=== PATIENT | female | born 1945 | race Hispanic/Latino ===

== ENCOUNTER 2017-10-04 13:21 | Observation (INO) | payer BC ==
--- NOTE | 2017-10-04 13:56 | ED PDOC ---
HPI: General Adult History Per: Patient Onset/Duration Of Symptoms: Days (1) Current Symptoms Are (Timing): Still Present Severity: Moderate Pain Scale Rating Of: 4 Time Seen by Provider: 10/04/17 13:26 Chief Complaint (Nursing): Trauma Additional Complaint(s): Tripped and fell last night with injury to right hand and wrist. Also hit right side of head, no LOC. Also with injury to right knee. C/o pain to right wrist and hand. (Erasmo Hudson) Past Medical History - Medical History PMH: No Chronic Diseases - Family History Family History: States: Unknown Family Hx Vital Signs: Last Vital Signs Temp 98.7 F 10/05/17 05:00 Pulse 81 10/05/17 05:00 Resp 16 10/05/17 05:00 BP 142/79 10/05/17 05:00 Pulse Ox 98 10/05/17 05:00 - Home Medications Home Medications: Ambulatory Orders Medication Instructions Recorded No Known Home Med 10/04/17 - Allergies Allergies/Adverse Reactions: Allergies Allergy/AdvReac Type Severity Reaction Status Date / Time ciprofloxacin [From Cipro] Allergy RASH Verified 10/04/17 13:29 Latex, Natural Rubber Allergy RASH Verified 10/05/17 00:34 Review of Systems ROS Statement: Except As Marked, All Systems Reviewed And Found Negative Musculoskeletal: Positive for: Hand Pain, Other (Wrist pain) Physical Exam - Reviewed Nursing Documentation Reviewed: Yes Vital Signs Reviewed: Yes - Physical Exam Appears: Positive for: Non-toxic, No Acute Distress Head Exam: Positive for: ATRAUMATIC (Abrasion right periorbital area. No palp fx ) Skin: Positive for: Normal Color, Warm, DRY Eye Exam: Positive for: EOMI, PERRL ENT: Positive for: Normal ENT Inspection Neck: Positive for: Normal, Painless ROM Cardiovascular/Chest: Positive for: Regular Rate, Rhythm Respiratory: Positive for: CNT, Normal Breath Sounds Gastrointestinal/Abdominal: Positive for: Normal Exam, Soft Back: Positive for: Normal Inspection Extremity: Positive for: Other (Right wrist, swan neck deformity with tenderness. Pain on flexion and extension. [place]renss dorsum right hand. No tenderness over scaphoid. Right knee, abrasion to lateral aspect of knee, FROM) Neurologic/Psych: Positive for: Alert, Oriented. Negative for: Motor/Sensory Deficits - Laboratory Results Result Diagrams: 10/04/17 17:49 10/04/17 17:49 - ECG O2 Sat by Pulse Oximetry: 100 Medical Decision Making Medical Decision Making: Time: 1352 Plan: -- CT Upper Extremity w/o contrast -- CT Head w/o contrast -- Knee 3 views Right XR -- Hand Right 3 views XR -- Wrist Right 3 Views XR Scribe Attestation: Documented by Mando Matias, acting as a scribe for Dr. Erasmo Hudson MD. Pt declines pain meds Provider Scribe Attestation: All medical record entries made by the Scribe were at my direction and personally dictated by me. I have reviewed the chart and agree that the record accurately reflects my personal performance of the history, physical exam, medical decision making, and the department course for this patient. I have also personally directed, reviewed, and agree with the discharge instructions and disposition. (Erasmo Hudson) Disposition - Patient ED Disposition Is Patient to be Admitted: Transfer of Care - Disposition Disposition: Transfer of Care Disposition Time: 15:00 Patient Signed Over To: Camilla Celaya - Clinical Impression Clinical Impression: Wrist fracture - Disposition Condition: STABLE
--- NOTE | 2017-10-04 15:06 | RAD ---
PROCEDURE: Right Wrist Radiographs. HISTORY: trauma COMPARISON: None. FINDINGS: BONES: There is an acute transverse comminuted impacted nondisplaced fracture in the distal radius with mild dorsal angulation. There is an acute transverse nondisplaced fracture in the styloid process of ulna. There is also an old fracture deformity in the distal styloid process of ulna. There is also suspicion of acute nondisplaced longitudinal fracture in the cross renal scaphoid. There is diffuse bone demineralization. Bone alignment is normal. JOINTS: The proximal and distal carpal rows are maintained. No dislocation. SOFT TISSUES: There is mild dorsal soft tissue swelling. OTHER FINDINGS: None. IMPRESSION: Acute transverse comminuted impacted nondisplaced fracture in the distal radius with mild dorsal angulation. Acute transverse nondisplaced fracture in the styloid process of ulna. Suspect acute nondisplaced longitudinal fracture in the proximal scaphoid. Dedicated scaphoid views recommended for further evaluation.
--- NOTE | 2017-10-04 15:09 | RAD ---
PROCEDURE: Right Hand Radiographs. HISTORY: trauma COMPARISON: None. FINDINGS: BONES: There is question of an acute nondisplaced long. No fracture in the proximal scaphoid. Bone alignment is normal. There is diffuse bone demineralization. JOINTS: The proximal and distal scaphoid rows are maintained. No osteoarthritic changes. SOFT TISSUES: Normal. OTHER FINDINGS: None. IMPRESSION: Question of acute nondisplaced longitudinal fracture in the proximal scaphoid. Dedicated scaphoid views recommended for definitive evaluation.
--- NOTE | 2017-10-04 15:12 | RAD ---
PROCEDURE: Right Knee Radiographs. HISTORY: trauma COMPARISON: None. FINDINGS: BONES: Bone alignment is normal. There is periarticular bone demineralization. There is no acute displaced fracture or bone destruction. JOINTS: Normal. No osteoarthritis. JOINT EFFUSION: There is a small suprapatellar joint effusion. OTHER FINDINGS: None. IMPRESSION: No acute fracture or dislocation.
--- NOTE | 2017-10-04 15:18 | CT ---
PROCEDURE: CT HEAD WITHOUT CONTRAST. HISTORY: r/o bleed COMPARISON: None available. TECHNIQUE: Axial computed tomography images were obtained through the head/brain without intravenous contrast. Radiation dose: Total exam DLP = 796.90 mGy-cm. This CT exam was performed using one or more of the following dose reduction techniques: Automated exposure control, adjustment of the mA and/or kV according to patient size, and/or use of iterative reconstruction technique. FINDINGS: HEMORRHAGE: No intracranial hemorrhage. BRAIN: There are mild chronic microangiopathic changes. There is no mass, mass effect or abnormal extra-axial fluid collection. There is no territorial infarction. VENTRICLES: There is mild age-related global parenchymal volume loss and proportionate enlargement of the ventricles and cortical sulci. CALVARIUM: The skull base and calvarium are normal. PARANASAL SINUSES: Predominantly clear. MASTOID AIR CELLS: Predominantly clear. OTHER FINDINGS: None. IMPRESSION: No acute intracranial abnormality.
--- NOTE | 2017-10-04 15:24 | CT ---
PROCEDURE: CT of the right wrist. HISTORY: trauma, attention wrist and hand COMPARISON: None available. TECHNIQUE: Contiguous axial images of the right wrist were obtained. Coronal and sagittal reformats were generated. This CT exam was performed using one or more of the following dose reduction techniques: Automated exposure control, adjustment of the mA and/or kV according to patient size, and/or use of iterative reconstruction technique. FINDINGS: BONES: There is an acute transverse comminuted nondisplaced impacted intra-articular fracture in the distal radius with mild dorsal angulation. There is an acute transverse nondisplaced fracture in the styloid process of ulna. There is an old fracture deformity in the distal styloid process of ulna. Bone alignment is normal. There is diffuse bone demineralization. The proximal and distal carpal rows are maintained. There is no evidence of fracture in the carpal bones. The radiocarpal joint is normal. SOFT TISSUES: The periarticular muscles are grossly normal in appearance. There is mild dorsal soft tissue swelling. IMPRESSION: 1. Acute transverse impacted comminuted intra-articular fracture in the distal radius with mild dorsal angulation. No dislocation. 2. Acute transverse nondisplaced fracture in the styloid process of ulna. 3. No evidence of fracture in the carpal bones.
--- NOTE | 2017-10-04 16:06 | ED PDOC ---
- Laboratory Results Result Diagrams: 10/04/17 17:49 10/04/17 17:49 - ECG O2 Sat by Pulse Oximetry: 100 Medical Decision Making Medical Decision Making: Accession No. : [id number] Patient Name / ID : RAMO DAI / [id number] Exam Date : 10/04/2017 14:48:06 ( Approved ) Study Comment : Sex / Age : F / 72Y Creator : Emma Vargas MD Dictator : Emma Vargas MD Tar Heat Exchanger Cleaner : Forensic Ballistics Expert : Emma Vargas MD Approver2 : Report Date : 10/04/2017 15:23:22 My Comment : PROCEDURE: CT of the right wrist. HISTORY: trauma, attention wrist and hand COMPARISON: None available. TECHNIQUE: Contiguous axial images of the right wrist were obtained. Coronal and sagittal reformats were generated. This CT exam was performed using one or more of the following dose reduction techniques: Automated exposure control, adjustment of the mA and/or kV according to patient size, and/or use of iterative reconstruction technique. FINDINGS: BONES: There is an acute transverse comminuted nondisplaced impacted intra-articular fracture in the distal radius with mild dorsal angulation. There is an acute transverse nondisplaced fracture in the styloid process of ulna. There is an old fracture deformity in the distal styloid process of ulna. Bone alignment is normal. There is diffuse bone demineralization. The proximal and distal carpal rows are maintained. There is no evidence of fracture in the carpal bones. The radiocarpal joint is normal. SOFT TISSUES: The periarticular muscles are grossly normal in appearance. There is mild dorsal soft tissue swelling. IMPRESSION: 1. Acute transverse impacted comminuted intra-articular fracture in the distal radius with mild dorsal angulation. No dislocation. 2. Acute transverse nondisplaced fracture in the styloid process of ulna. 3. No evidence of fracture in the carpal bones. Accession No. : [id number] Patient Name / ID : RAMO DAI / [id number] Exam Date : 10/04/2017 14:43:20 ( Approved ) Study Comment : Sex / Age : F / 72Y Creator : Emma Vargas MD Dictator : Emma Vargas MD Tar Heat Exchanger Cleaner : Forensic Ballistics Expert : Emma Vargas MD Approver2 : Report Date : 10/04/2017 15:16:13 My Comment : PROCEDURE: CT HEAD WITHOUT CONTRAST. HISTORY: r/o bleed COMPARISON: None available. TECHNIQUE: Axial computed tomography images were obtained through the head/brain without intravenous contrast. Radiation dose: Total exam DLP = 796.90 mGy-cm. This CT exam was performed using one or more of the following dose reduction techniques: Automated exposure control, adjustment of the mA and/or kV according to patient size, and/or use of iterative reconstruction technique. FINDINGS: HEMORRHAGE: No intracranial hemorrhage. BRAIN: There are mild chronic microangiopathic changes. There is no mass, mass effect or abnormal extra-axial fluid collection. There is no territorial infarction. VENTRICLES: There is mild age-related global parenchymal volume loss and proportionate enlargement of the ventricles and cortical sulci. CALVARIUM: The skull base and calvarium are normal. PARANASAL SINUSES: Predominantly clear. MASTOID AIR CELLS: Predominantly clear. OTHER FINDINGS: None. IMPRESSION: No acute intracranial abnormality. 15:50 CT reports discussed with Dr. Rios, recommends CT facial bones. 16:35 Admit to hospital, splint, ice X 20 minutes q1h, case discussed with Dr. Sherman (Hospitalist). Disposition - Clinical Impression Clinical Impression: Wrist fracture - POA Present On Arrival: Falls Or Trauma - Disposition Disposition: Admitted as In-Patient Disposition Time: 16:41 Condition: STABLE Addendum Addendum: 10/04/17 15:00 Pt signed out by Dr. Hudson pending CT.
--- NOTE | 2017-10-04 16:46 | CT ---
PROCEDURE: CT ORBITS WITHOUT CONTRAST. HISTORY: R orbital injury COMPARISON: None available. TECHNIQUE: Axial CT images of the orbits were obtained. Coronal and sagittal reformats were generated. Radiation dose: Total exam DLP = 1148.32 MGy-cm. This CT exam was performed using one or more of the following dose reduction techniques: Automated exposure control, adjustment of the mA and/or kV according to patient size, and/or use of iterative reconstruction technique. FINDINGS: RIGHT ORBIT: RIGHT BONY ORBIT: No acute fracture. RIGHT INTRAORBITAL STRUCTURES: Globe: Normal. Extraocular muscles: Normal. Post septal space: Normal. Optic Nerve: Normal. Lacrimal Apparatus: Normal. RIGHT PRESEPTAL SOFT TISSUES: Normal. LEFT ORBIT: LEFT BONY ORBIT: No acute fracture. LEFT INTRAORBITAL STRUCTURES: Globe: Normal. Extraocular muscles: Normal. Post septal space: Normal Optic Nerve: Normal. . Lacrimal Apparatus: Normal. LEFT PRESEPTAL SOFT TISSUES: Normal. OTHER: The paranasal sinuses are clear. IMPRESSION: No acute orbital fracture. No acute maxillofacial fracture.
--- NOTE | 2017-10-04 16:50 | RAD ---
HISTORY: Medical clearance COMPARISON: No prior. FINDINGS: LUNGS: The lungs are well inflated and clear. PLEURA: No significant pleural effusion identified, no pneumothorax apparent. CARDIOVASCULAR: Normal. OSSEOUS STRUCTURES: No significant abnormalities. VISUALIZED UPPER ABDOMEN: Normal. OTHER FINDINGS: None. IMPRESSION: No active pulmonary disease.
[2017-10-04 17:55] LABS: BASO # 0.1 K/uL (0.0-0.2); BASO % 0.7 % (0.0-2.0); EOS # 0.1 K/uL (0.0-0.7); EOS % 0.7 % (0.0-4.0); LYMPH # 1.1 K/uL (1.0-4.3); LYMPH % 12.8 % (20.0-40.0); MEAN CELL VOLUME 94.1 fl (81.0-99.0); MEAN CORPUSCULAR HEMOGLOBIN 32.2 pg (27.0-31.0); MEAN CORPUSCULAR HGB CONC 34.3 g/dL (33.0-37.0); MEAN PLATELET VOLUME 8.1 fl (7.2-11.7); MONO # 0.6 K/uL (0.0-0.8); MONO % 7.6 % (0.0-10.0); NEUT # 6.5 K/uL (1.8-7.0); NEUT % 78.2 % (50.0-75.0); RBC 4.64 Mil/uL (3.80-5.20); RED CELL DISTRIBUTION WIDTH 12.5 % (11.5-14.5); WHITE BLOOD COUNT 8.3 K/uL (4.8-10.8)
[2017-10-04 18:02] LABS: ALB/GLOB RATIO 1.3 (1.0-2.1); ALBUMIN 4.2 g/dL (3.5-5.0); ALT/SGPT 36 U/L (9-52); AST/SGOT 37 U/L (14-36); BLOOD UREA NITROGEN 28 mg/dl (7-17); CALCIUM 9.3 mg/dL (8.4-10.2); GFR AFRICAN-AMERICAN > 60; GFR NON-AFRICAN AMERICAN > 60
[2017-10-04 18:05] LABS: INR 0.9 (0.9-1.2); PROTHROMBIN TIME 10.4 Seconds (9.8-13.1)
[2017-10-04 18:06] LABS: PARTIAL THROMBOPLASTIN TIME 26.5 Seconds (25.6-37.1)
--- NOTE | 2017-10-04 18:15 | CP.PCM.HP ---
History of Present Illness - History of Present Illness History of Present Illness: CC: Right wrist injury This is a 72 year old male with past medical history of mild intermittent asthma (has not had to use her Ventolin inhaler for years) presenting to the ED status post fall the evening of 10/03/2017. The patient states that she was working outside when she had a mechanical fall and fell forward with outstretched right hand. The patient states that her wrist and the right side of her face hit the pavement. In the ED, the patient had Right wrist X ray and follow up CT of the right upper extremity revealing acute transverse impacted comminuted intra-articular fracture in the distal radius with mild dorsal angulation without dislocation. There is also an acute transverse nondisplaced fracture in the styloid process of the ulna. CT imaging of the orbit shows no orbital fracture. The patient denies chest pain, shortness of breath, fevers, chills, nausea, vomiting, diarrhea, headache. All of the patient's and/or family 's questions were answered at the bedside. Present on Admission - Present on Admission Any Indicators Present on Admission: No History of DVT/PE: No History of Uncontrolled Diabetes: No Review of Systems - Review of Systems Review of Systems: A 12 point review of systems was conducted and found to be negative other than in HPI. Past Patient History - Infectious Disease Hx of Infectious Diseases: None - Past Medical History & Family History Past Medical History?: No Past Family History: Reviewed and not pertinent - Past Social History Smoking Status: Never Smoked Alcohol: None Drugs: Denies Home Situation {Lives}: With Family - PULMONARY Hx Asthma: Yes (Mild intermittent) - PSYCHIATRIC Hx Substance Use: No - SURGICAL HISTORY Hx Section: Yes - ANESTHESIA Hx Anesthesia: Yes Hx Anesthesia Reactions: No Meds Allergies/Adverse Reactions: Allergies Allergy/AdvReac Type Severity Reaction Status Date / Time ciprofloxacin [From Cipro] Allergy RASH Verified 10/04/17 13:29 Physical Exam - Additional Findings Additional findings: Physical exam: Constitutional- cooperative, awake, alert Head- normocephalic, right lateral orbit with localized edema and small contusion, PERRL Eye- PERRL, EOMI ENT- normal exam, MMM. Neck- normal inspection, supple, no JVD Respiratory- CTAB, no wheezes rales rhonchi Cardiovascular- RRR, +S1, +S2 no MRG GI/Abdominal- normal bowel sounds, soft, no mass, no hsm Skin- warm, dry Extremities Exam- + Right wrist with localized edema and tenderness to palpation. No neurological deficits. normal capillary refill. Neurological Exam- alert, awake, oriented Psych- normal mood, normal affect Results - Vital Signs Recent Vital Signs: Last Vital Signs Temp 98 F 10/04/17 13:30 Pulse 87 10/04/17 13:30 Resp 18 10/04/17 13:30 BP 181/99 H 10/04/17 13:30 Pulse Ox 100 10/04/17 16:41 - Labs Result Diagrams: 10/04/17 17:49 10/04/17 17:49 Assessment & Plan - Assessment and Plan (Free Text) Plan: ASSESSMENT/PLAN This is a 72 year old male with past medical history of mild intermittent asthma (has not had to use her Ventolin inhaler for years) presenting to the ED status post fall the evening of 10/03/2017, with acute right wrist fracture. 1) Acute right distal radial fracture and acute right ulnar fracture - Place on med/surg observation - Consultation with Dr. Rios- plan for OR tomorrow morning - NPO at midnight with maintenance fluids - Pain control with Tylenol and morphine sliding scale - Patient 2) Hypertension on admission - May be elevated secondary to pain - Cardiology consult with Dr. Ott for preop cardiac risk assessment 3) DVT prophylaxis - SCDs
[2017-10-04] MEDS ORDERED: Albuterol HFA 90 mcg/actuation (8 g) INH PRN (18:18)
[2017-10-04 21:44] LABS: SQUAMOUS EPITHIAL 2 /hpf (0-5); URINE BILIRUBIN NEGATIVE (NEGATIVE); URINE BLOOD NEGATIVE (NEGATIVE); URINE CLARITY SLIGHTY-CLOUDY (Clear); URINE COLOR YELLOW (YELLOW); URINE GLUCOSE (UA) NEG (Normal); URINE HYALINE CAST 0-2 /hpf (0-2); URINE LEUKOCYTE ESTERASE NEG Leu/uL (Negative); URINE PROTEIN NEGATIVE (NEGATIVE); URINE UROBILINOGEN 0.2-1.0 mg/dL (0.2-1.0)
[2017-10-05] MEDS: Bacitracin OINT 15GM TOP SCH ×3 (00:19→18:55)
--- NOTE | 2017-10-05 07:14 | CP.PCM.PCO ---
Physician Communication Note - Physician Communication Note Physician Communication Note: Clearance for Surgery.
--- NOTE | 2017-10-05 07:58 | CP.PCM.CON ---
History of Present Illness - History of Present Illness History of Present Illness: THE PATIENT IS A 72 YEAR OLD FEMALE WHO TRIPPED YESTERDAY AND HAD A MECHANICAL FALL AND FELL ON OUTSTRETCHED ARMS AND HANDS AND SUSTAINED A RIGHT WRIST FRACTURE. SHE IS SCHEDULED FOR SURGERY BY DR BALDWIN TODAY AND I WAS ASKED TO SEE HER PRE-OPERATIVELY. SHE HAS A HISTORY OF MILD ASTHMA AND TAKES INHALERS RARELY USUALLY DURING ALLERGY SEASON. SHE DENIES ANY OTHER KNOWN MEDICAL PROBLEMS SUCH CARDIAC PROBLEMS, HYPERTENSION, HYPERLIPIDEMIA OR DM. SHE DENIES ANY CHEST PAIN, PALPITATIONS OR SOB. HER BLOOD PRESSURE WAS HIGH IN THE ER AT 184/105 MOST PROBABLY FROM THE RIGHT WRIST PAIN AND IT IS NOW BETTER AT 124/78 AFTER MS AND ONE DOSE OF CLONIDINE. Past Patient History - Infectious Disease Hx of Infectious Diseases: None - Past Medical History & Family History Past Medical History?: No - Past Social History Smoking Status: Never Smoked - PULMONARY Hx Respiratory Disorders: Yes Hx Asthma: Yes (Mild intermittent) - NEUROLOGICAL Hx Neurological Disorder: No - HEENT Hx HEENT Problems: No - RENAL Hx Chronic Kidney Disease: No - ENDOCRINE/METABOLIC Hx Endocrine Disorders: No - HEMATOLOGICAL/ONCOLOGICAL Hx Blood Disorders: No Hx AIDS: No Hx Human Immunodeficiency Virus (HIV): No - INTEGUMENTARY Hx Dermatological Problems: No - MUSCULOSKELETAL/RHEUMATOLOGICAL Hx Musculoskeletal Disorders: Yes Hx Falls: Yes - GASTROINTESTINAL Hx Gastrointestinal Disorders: No - GENITOURINARY/GYNECOLOGICAL Hx Genitourinary Disorders: No - PSYCHIATRIC Hx Psychophysiologic Disorder: No Hx Substance Use: No - SURGICAL HISTORY Hx Surgeries: Yes Hx Section: Yes - ANESTHESIA Hx Anesthesia: Yes Hx Anesthesia Reactions: No Meds Allergies/Adverse Reactions: Allergies Allergy/AdvReac Type Severity Reaction Status Date / Time ciprofloxacin [From Cipro] Allergy RASH Verified 10/04/17 13:29 contact metal agent Allergy PAIN Verified 10/05/17 07:05 Latex, Natural Rubber Allergy RASH Verified 10/05/17 00:34 - Medications Medications: Current Medications Acetaminophen (Tylenol 325mg Tab) 650 mg PO Q6 PRN PRN Reason: Pain, Mild (1-3) Albuterol (Ventolin Hfa 90 Mcg/Actuation (8 G)) 1 puff INH RQ4 PRN PRN Reason: Shortness of Breath Bacitracin (Bacitracin Oint) 1 applic TOP BID TANA Last Admin: 10/05/17 00:19 Dose: 1 applic Dextrose/Sodium Chloride (Dextrose 5%-0.45% Ns 500 Ml) 500 mls @ 60 mls/hr IV .[id number] TANA Stop: 10/05/17 15:00 Last Admin: 10/05/17 00:31 Dose: 60 mls/hr Morphine Sulfate (Morphine) 1 mg IVP Q4 PRN PRN Reason: Pain, moderate (4-7) Morphine Sulfate (Morphine) 2 mg IVP Q4 PRN PRN Reason: Pain, severe (8-10) Last Admin: 10/05/17 04:05 Dose: 2 mg Zolpidem Tartrate (Ambien) 5 mg PO HS PRN PRN Reason: Insomnia Last Admin: 10/04/17 23:23 Dose: 5 mg Physical Exam - Respiratory Exam Respiratory Exam: Clear to Auscultation Bilateral - Cardiovascular Exam Cardiovascular Exam: REGULAR RHYTHM, +S1, +S2 - Extremities Exam Additional comments: NO EDEMA OF LOWER EXTREMITIES JORGE'S SIGN NEGATIVE BILAT - Additional Findings Additional findings: EKG NSR CXR NAD OTHER LABS NOTED Results - Vital Signs Recent Vital Signs: Last Vital Signs Temp 98.7 F 10/05/17 05:00 Pulse 77 10/05/17 07:03 Resp 20 10/05/17 07:03 BP 124/78 10/05/17 07:03 Pulse Ox 98 10/05/17 07:03 - Labs Result Diagrams: 10/04/17 17:49 10/04/17 17:49 Labs: Laboratory Results - last 24 hr 10/04/17 10/04/17 10/04/17 17:49 17:49 17:49 WBC 8.3 RBC 4.64 Hgb 15.0 Hct 43.6 MCV 94.1 MCH 32.2 H MCHC 34.3 RDW 12.5 Plt Count 229 MPV 8.1 Neut % (Auto) 78.2 H Lymph % (Auto) 12.8 L Sebastian % (Auto) 7.6 Eos % (Auto) 0.7 Baso % (Auto) 0.7 Neut # (Auto) 6.5 Lymph # (Auto) 1.1 Sebastian # (Auto) 0.6 Eos # (Auto) 0.1 Baso # (Auto) 0.1 PT 10.4 INR 0.9 APTT 26.5 Sodium 141 Potassium 3.9 Chloride 103 Carbon Dioxide 22 Anion Gap 20 BUN 28 H Creatinine 0.6 L Est GFR ( Amer) > 60 Est GFR (Non-Af Amer) > 60 Random Glucose 94 Calcium 9.3 Total Bilirubin 0.6 AST 37 H ALT 36 Alkaline Phosphatase 104 Total Protein 7.3 Albumin 4.2 Globulin 3.1 Albumin/Globulin Ratio 1.3 Urine Color Urine Clarity Urine pH Ur Specific Cressey Urine Protein Urine Glucose (UA) Urine Ketones Urine Blood Urine Nitrate Urine Bilirubin Urine Urobilinogen Ur Leukocyte Esterase Urine RBC (Auto) Urine Microscopic WBC Ur Squamous Epith Cells Hyaline Casts 10/04/17 21:30 WBC RBC Hgb Hct MCV MCH MCHC RDW Plt Count MPV Neut % (Auto) Lymph % (Auto) Sebastian % (Auto) Eos % (Auto) Baso % (Auto) Neut # (Auto) Lymph # (Auto) Sebastian # (Auto) Eos # (Auto) Baso # (Auto) PT INR APTT Sodium Potassium Chloride Carbon Dioxide Anion Gap BUN Creatinine Est GFR ( Amer) Est GFR (Non-Af Amer) Random Glucose Calcium Total Bilirubin AST ALT Alkaline Phosphatase Total Protein Albumin Globulin Albumin/Globulin Ratio Urine Color Yellow Urine Clarity Slighty-cloudy Urine pH 5.0 Ur Specific Cressey 1.019 Urine Protein Negative Urine Glucose (UA) Neg Urine Ketones Trace Urine Blood Negative Urine Nitrate Negative Urine Bilirubin Negative Urine Urobilinogen 0.2-1.0 Ur Leukocyte Esterase Neg Urine RBC (Auto) 3 Urine Microscopic WBC 1 Ur Squamous Epith Cells 2 Hyaline Casts 0-2 Assessment & Plan - Assessment and Plan (Free Text) Assessment: FALL WITH RIGHT WRIST FRACTURE MILD ASTHMA-STABLE HYPERTENSION MOST PROBABLY FROM THE THE RIGHT WRIST FRACTURE PAIN Plan: THE PATIENT IS CLEARED FOR HER ORTHOPEDIC SURGERY OBSERVE BLOOD PRESSURE POST-OP
[2017-10-05] MEDS ORDERED: Morphine 4 MG/ML VIAL ONE (08:05)
[2017-10-05] MEDS: Morphine 4 MG/ML VIAL IVP PRN ×4 (08:10→23:05)
--- NOTE | 2017-10-05 08:14 | CP.PCM.PN ---
Subjective - Date & Time of Evaluation Date of Evaluation: 10/05/17 Time of Evaluation: 08:13 - Subjective Subjective: pt stable this am no complaints pain controlled hd stable Objective - Vital Signs/Intake and Output Vital Signs (last 24 hours): Temp Pulse Resp BP Pulse Ox 98.7 F 77 20 124/78 98 10/05/17 05:00 10/05/17 07:03 10/05/17 07:03 10/05/17 07:03 10/05/17 07:03 Vitals Reviewed GEN: WDWN, alert, cooperative HEENT: NCAT, PERRL, EOMI HEART: RRR, +S1S2, NO MRG LUNG: CTAB, NO WRR ABD: soft, NT, ND, No HSM, No masses EXT: normal pedal pulses, normal capillary refill NEURO: awake, alert, no focal deficits SKIN: warm, dry PSYCH: normal mood, normal affect - Medications Medications: Current Medications Acetaminophen (Tylenol 325mg Tab) 650 mg PO Q6 PRN PRN Reason: Pain, Mild (1-3) Albuterol (Ventolin Hfa 90 Mcg/Actuation (8 G)) 1 puff INH RQ4 PRN PRN Reason: Shortness of Breath Bacitracin (Bacitracin Oint) 1 applic TOP BID [facility] Last Admin: 10/05/17 00:19 Dose: 1 applic Dextrose/Sodium Chloride (Dextrose 5%-0.45% Ns 500 Ml) 500 mls @ 60 mls/hr IV .Q8H20M [facility] Stop: 10/05/17 15:00 Last Admin: 10/05/17 00:31 Dose: 60 mls/hr Morphine Sulfate (Morphine) 1 mg IVP Q4 PRN PRN Reason: Pain, moderate (4-7) Morphine Sulfate (Morphine) 2 mg IVP Q4 PRN PRN Reason: Pain, severe (8-10) Last Admin: 10/05/17 08:10 Dose: 2 mg Zolpidem Tartrate (Ambien) 5 mg PO HS PRN PRN Reason: Insomnia Last Admin: 10/04/17 23:23 Dose: 5 mg - Labs Labs: 10/04/17 17:49 10/04/17 17:49 PT 10.4 Seconds (9.8-13.1) 10/04/17 17:49 INR 0.9 (0.9-1.2) 10/04/17 17:49 APTT 26.5 Seconds (25.6-37.1) 10/04/17 17:49 Assessment and Plan - Assessment and Plan (Free Text) Plan: This is a 72 year old female with past medical history of mild intermittent asthma (has not had to use her Ventolin inhaler for years) presenting to the ED status post fall the evening of 10/03/2017, with acute right wrist fracture. Medically stable for OR this morning, low risk for moderate risk procedure. 1) Acute right distal radial fracture and acute right ulnar fracture - Place on med/surg observation - Consultation with Dr. Rios- plan for OR tomorrow morning - NPO at midnight with maintenance fluids - Pain control with Tylenol and morphine sliding scale - Patient 2) Hypertension on admission - May be elevated secondary to pain - Cardiology consult with Dr. Ott for preop cardiac risk assessment 3) DVT prophylaxis - SCDs
[2017-10-05] MEDS ORDERED: Etomidate 20 mg/10ml Inj IV ONE (08:32)
[2017-10-05] MEDS ORDERED: Succinylcholine 200 mg/10 ml Inj IV ONE (08:32)
[2017-10-05] MEDS ORDERED: Propofol 10 mg/ml Inj (20 ML) ONE (08:32)
[2017-10-05] MEDS ORDERED: Rocuronium 10 mg/ml (5 ml) ONE (08:32)
[2017-10-05] MEDS ORDERED: Lactated Ringer's 1,000 ML IV ONE (08:50)
--- NOTE | 2017-10-05 09:03 | CP.PCM.CON ---
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 PT stumbled on irregularity in receently paved driveway. Pt presents to ER at [facility] at my direction. PT evaluated by me and by ER team in ER. No LOC Past Patient History - Infectious Disease Hx of Infectious Diseases: None - Past Medical History & Family History Past Medical History?: No - Past Social History Smoking Status: Never Smoked - PULMONARY Hx Respiratory Disorders: Yes Hx Asthma: Yes (Mild intermittent) - NEUROLOGICAL Hx Neurological Disorder: No - HEENT Hx HEENT Problems: No - RENAL Hx Chronic Kidney Disease: No - ENDOCRINE/METABOLIC Hx Endocrine Disorders: No - HEMATOLOGICAL/ONCOLOGICAL Hx Blood Disorders: No Hx AIDS: No Hx Human Immunodeficiency Virus (HIV): No - INTEGUMENTARY Hx Dermatological Problems: No - MUSCULOSKELETAL/RHEUMATOLOGICAL Hx Musculoskeletal Disorders: Yes Hx Falls: Yes - GASTROINTESTINAL Hx Gastrointestinal Disorders: No - GENITOURINARY/GYNECOLOGICAL Hx Genitourinary Disorders: No - PSYCHIATRIC Hx Psychophysiologic Disorder: No Hx Substance Use: No - SURGICAL HISTORY Hx Surgeries: Yes Hx Section: Yes Other/Comment: past med hx- not contributory - ANESTHESIA Hx Anesthesia: Yes Hx Anesthesia Reactions: No Meds Allergies/Adverse Reactions: Allergies Allergy/AdvReac Type Severity Reaction Status Date / Time ciprofloxacin [From Cipro] Allergy RASH Verified 10/04/17 13:29 contact metal agent Allergy PAIN Verified 10/05/17 07:05 Latex, Natural Rubber Allergy RASH Verified 10/05/17 00:34 - Medications Medications: Current Medications Acetaminophen (Tylenol 325mg Tab) 650 mg PO Q6 PRN PRN Reason: Pain, Mild (1-3) Albuterol (Ventolin Hfa 90 Mcg/Actuation (8 G)) 1 puff INH RQ4 PRN PRN Reason: Shortness of Breath Bacitracin (Bacitracin Oint) 1 applic TOP BID [facility] Last Admin: 10/05/17 00:19 Dose: 1 applic Dextrose/Sodium Chloride (Dextrose 5%-0.45% Ns 500 Ml) 500 mls @ 60 mls/hr IV .Q8H20M [facility] Stop: 10/05/17 15:00 Last Admin: 10/05/17 00:31 Dose: 60 mls/hr Morphine Sulfate (Morphine) 1 mg IVP Q4 PRN PRN Reason: Pain, moderate (4-7) Morphine Sulfate (Morphine) 2 mg IVP Q4 PRN PRN Reason: Pain, severe (8-10) Last Admin: 10/05/17 08:10 Dose: 2 mg Zolpidem Tartrate (Ambien) 5 mg PO HS PRN PRN Reason: Insomnia Last Admin: 10/04/17 23:23 Dose: 5 mg Physical Exam - Additional Findings Additional findings: Systemic HEENT- + periorbital R ecchymosis No LOC remainder of sytemic exam grossly wnl- please refer to Dr Ott/DR Garcia?/ DR Whyte notes Musculoskekltal stance/gait- defrred R upper extremityy with "silver fork" deformity no neuro deficits abrasion on dorsal/ulnar aspect wrist (Right) Results - Vital Signs Recent Vital Signs: Last Vital Signs Temp 97.5 F L 10/05/17 08:13 Pulse 72 10/05/17 08:13 Resp 18 10/05/17 08:13 BP 108/65 10/05/17 08:13 Pulse Ox 95 10/05/17 08:13 - Labs Result Diagrams: 10/04/17 17:49 10/04/17 17:49 Labs: Laboratory Results - last 24 hr 10/04/17 10/04/17 10/04/17 17:49 17:49 17:49 WBC 8.3 RBC 4.64 Hgb 15.0 Hct 43.6 MCV 94.1 MCH 32.2 H MCHC 34.3 RDW 12.5 Plt Count 229 MPV 8.1 Neut % (Auto) 78.2 H Lymph % (Auto) 12.8 L [place] % (Auto) 7.6 Eos % (Auto) 0.7 Baso % (Auto) 0.7 Neut # (Auto) 6.5 Lymph # (Auto) 1.1 [place] # (Auto) 0.6 Eos # (Auto) 0.1 Baso # (Auto) 0.1 PT 10.4 INR 0.9 APTT 26.5 Sodium 141 Potassium 3.9 Chloride 103 Carbon Dioxide 22 Anion Gap 20 BUN 28 H Creatinine 0.6 L Est GFR ( Amer) > 60 Est GFR (Non-Af Amer) > 60 Random Glucose 94 Calcium 9.3 Total Bilirubin 0.6 AST 37 H ALT 36 Alkaline Phosphatase 104 Total Protein 7.3 Albumin 4.2 Globulin 3.1 Albumin/Globulin Ratio 1.3 Urine Color Urine Clarity Urine pH Ur Specific [place] Urine Protein Urine Glucose (UA) Urine Ketones Urine Blood Urine Nitrate Urine Bilirubin Urine Urobilinogen Ur Leukocyte Esterase Urine RBC (Auto) Urine Microscopic WBC Ur Squamous Epith Cells Hyaline Casts BBK History Checked 10/04/17 10/05/17 21:30 08:25 WBC RBC Hgb Hct MCV MCH MCHC RDW Plt Count MPV Neut % (Auto) Lymph % (Auto) [place] % (Auto) Eos % (Auto) Baso % (Auto) Neut # (Auto) Lymph # (Auto) [place] # (Auto) Eos # (Auto) Baso # (Auto) PT INR APTT Sodium Potassium Chloride Carbon Dioxide Anion Gap BUN Creatinine Est GFR ( Amer) Est GFR (Non-Af Amer) Random Glucose Calcium Total Bilirubin AST ALT Alkaline Phosphatase Total Protein Albumin Globulin Albumin/Globulin Ratio Urine Color Yellow Urine Clarity Slighty-cloudy Urine pH 5.0 Ur Specific [place] 1.019 Urine Protein Negative Urine Glucose (UA) Neg Urine Ketones Trace Urine Blood Negative Urine Nitrate Negative Urine Bilirubin Negative Urine Urobilinogen 0.2-1.0 Ur Leukocyte Esterase Neg Urine RBC (Auto) 3 Urine Microscopic WBC 1 Ur Squamous Epith Cells 2 Hyaline Casts 0-2 BBK History Checked No verified bt - Impressions Impression: Xray- displaced /comminuted/angulated R distal; radius fx CT- displaced/comminuted/angulated distal radius fracture CT scan faciual bones (-) Assessment & Plan - Assessment and Plan (Free Text) Assessment: Assessment- Multiple trauma displaced distal radius fracture ecchymosis /contusion R facial bones(zygomatic arch)- no fx contusion R Knee P- To OR for closed reduction perc pin fixation R distal radius fracture / applx external fixator. Plate fixation obviated by hx of ? metal allergy (many years ago) P to OR for closed redcution displaced distal radius fx /percutaneous pin fixation and application external fixator
[2017-10-05] MEDS ORDERED: Phenylephrine 10 mg/ml Inj ONE (09:14)
[2017-10-05] MEDS ORDERED: Bupivacaine HCl 0.5% PF (30 ml) Inj ONE (09:49)
[2017-10-05] MEDS ORDERED: Lidocaine 2% MPF (5 ml) Inj ONE (09:49)
[2017-10-05] MEDS ORDERED: Neostigmine 1:1000 (1 mg/ml) Inj ONE (10:26)
--- NOTE | 2017-10-05 11:26 | PCM.ANESB1 ---
Interscalene Block - Brachial Plexus Date of Procedure: 10/05/17 Anesthesiologist: david Pre-Procedure Diagnosis: right wrist fx Post-Procedure Diagnosis: same Procedure Performed: Interscalene Block of Brachial Plexus Right - Procedure Interscalene Block of Brachial Plexus: This procedure was explained to the patient that it is for post-operative pain management. Consent was obtained after a thorough discussion with the patient regarding the benefits and possible complications of local anesthetic block of the Brachial Plexus at the Interscalene area. The patient was brought to the Operating Room and standard monitors were applied. Time out was held with the circulating nurse to confirm the correct surgery and appropriate block. After applying Oxygen by nasal cannula and administering IV Sedation, the patient's head was gently rotated away from the __right____operative shoulder and the anterior scalene groove was carefully palpated. The ultrasound transducer was then applied to the skin in the transverse plane and the brachial plexus was visualized lateral to the carotid artery and in between the anterior and middle scalene muscles. After identification,the anterior lateral portion of the neck was prepped with Betadine solution three times and Lidocaine 1% was injected subcutaneously for topical analgesia. At this point, a # 22 gauge Stimuplex 2 inches insulated needle was inserted into the interscalene groove and directed in a caudal and midline direction. The needle was inserted lateral to the ultrasound transducer in-plane towards the brachial plexus in a [id number] direction. Needle advancement was performed carefully under direct ultrasound visualization. Nerve stimulator was used and twitched of the affected extremity including the hand brachialis muscles, biceps and the deltoid was obtained at a current of _0.3____MA. After repeated negative aspiration,___5__cc of__0.25___,_bupivacaine were injected and this was followed with __25___cc of _0.25____% __bupivacaine__ . Under ultrasound guidance the local anesthetics were observed surrounding the roots of the brachial plexus. The needle was removed intact and sterile dressing was applied. The patient had stable vital signs, was conscious and in no apparent distress. The patient tolerated the interscalene block of the bracheal plexus well with stable vital signs and was prepared for subsequent surgery.
[2017-10-05] MEDS: Lactated Ringer's 1,000 ML IV SCH ×2 (12:04→21:14)
[2017-10-05] MEDS ORDERED: HYDROmorphone 0.5 mg/0.5 ml ISec IVP STA (13:51)
--- NOTE | 2017-10-05 14:14 | RAD ---
PROCEDURE: Right Wrist Radiographs. HISTORY: s/p ORIF distal radius fx (Right) COMPARISON: 10/04/2017 FINDINGS: BONES: Status post open reduction and internal fixation of distal radius fracture. There is improved bone alignment. There is redemonstration of acute nondisplaced fracture in the styloid process of ulna. 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 No dislocation. SOFT TISSUES: There is periarticular soft tissue swelling. OTHER FINDINGS: None. IMPRESSION: Status post open reduction and internal fixation of comminuted distal radial fracture with improved alignment of fracture fragments. No acute complications.
--- NOTE | 2017-10-05 14:52 | CARD ---
APPROVED REPORT EKG Measurement Heart [id number] <Conclusion> Normal sinus rhythm Possible Left atrial enlargement Borderline ECG
[2017-10-06] MEDS: Lactated Ringer's 1,000 ML IV SCH (03:56)
[2017-10-06] MEDS: Morphine 4 MG/ML VIAL IVP PRN (03:57)
[2017-10-06 06:06] LABS: HEMOGLOBIN 12.4 g/dL (12.0-16.0); MEAN CELL VOLUME 95.1 fl (81.0-99.0); MEAN CORPUSCULAR HEMOGLOBIN 32.4 pg (27.0-31.0); MEAN CORPUSCULAR HGB CONC 34.1 g/dL (33.0-37.0); RBC 3.84 Mil/uL (3.80-5.20); RED CELL DISTRIBUTION WIDTH 12.8 % (11.5-14.5); WHITE BLOOD COUNT 5.1 K/uL (4.8-10.8)
[2017-10-06 06:33] LABS: BLOOD UREA NITROGEN 12 mg/dl (7-17); CALCIUM 8.2 mg/dL (8.4-10.2); GFR AFRICAN-AMERICAN > 60; GFR NON-AFRICAN AMERICAN > 60
[2017-10-06] MEDS ORDERED: Potassium Chloride 20 mEq ER Tab PO ONE (08:00)
[2017-10-06 08:02] VITALS: BP 136/74; PULSE 75; RESP 18; TEMP 98.3; O2SAT 97
[2017-10-06] MEDS: Bacitracin OINT 15GM TOP SCH (08:47)
--- NOTE | 2017-10-06 10:32 | CP.PCM.DIS ---
Provider - Provider Date of Admission: 10/04/17 16:41 Attending physician: Hemal Sherman DO Time Spent in preparation of Discharge (in minutes): 30 Diagnosis - Discharge Diagnosis (1) Wrist fracture Status: Acute Hospital Course - Lab Results Lab Results: Most Recent Lab Values WBC 5.1 K/uL (4.8-10.8) 10/06/17 04:30 RBC 3.84 Mil/uL (3.80-5.20) 10/06/17 04:30 Hgb 12.4 g/dL (12.0-16.0) D 10/06/17 04:30 Hct 36.5 % (34.0-47.0) 10/06/17 04:30 MCV 95.1 fl (81.0-99.0) 10/06/17 04:30 MCH 32.4 pg (27.0-31.0) H 10/06/17 04:30 MCHC 34.1 g/dL (33.0-37.0) 10/06/17 04:30 RDW 12.8 % (11.5-14.5) 10/06/17 04:30 Plt Count 163 K/uL (130-400) 10/06/17 04:30 MPV 8.1 fl (7.2-11.7) 10/04/17 17:49 Neut % (Auto) 78.2 % (50.0-75.0) H 10/04/17 17:49 Lymph % (Auto) 12.8 % (20.0-40.0) L 10/04/17 17:49 [place] % (Auto) 7.6 % (0.0-10.0) 10/04/17 17:49 Eos % (Auto) 0.7 % (0.0-4.0) 10/04/17 17:49 Baso % (Auto) 0.7 % (0.0-2.0) 10/04/17 17:49 Neut # (Auto) 6.5 K/uL (1.8-7.0) 10/04/17 17:49 Lymph # (Auto) 1.1 K/uL (1.0-4.3) 10/04/17 17:49 [place] # (Auto) 0.6 K/uL (0.0-0.8) 10/04/17 17:49 Eos # (Auto) 0.1 K/uL (0.0-0.7) 10/04/17 17:49 Baso # (Auto) 0.1 K/uL (0.0-0.2) 10/04/17 17:49 PT 10.4 Seconds (9.8-13.1) 10/04/17 17:49 INR 0.9 (0.9-1.2) 10/04/17 17:49 APTT 26.5 Seconds (25.6-37.1) 10/04/17 17:49 Sodium 139 mmol/l (132-148) 10/06/17 04:30 Potassium 3.5 MMOL/L (3.6-5.0) L 10/06/17 04:30 Chloride 102 mmol/L (98-107) 10/06/17 04:30 Carbon Dioxide 27 mmol/L (22-30) 10/06/17 04:30 Anion Gap 14 (10-20) 10/06/17 04:30 BUN 12 mg/dl (7-17) 10/06/17 04:30 Creatinine 0.6 mg/dl (0.7-1.2) L 10/06/17 04:30 Est GFR ( Amer) > 60 10/06/17 04:30 Est GFR (Non-Af Amer) > 60 10/06/17 04:30 Random Glucose 94 mg/dL (65-105) 10/06/17 04:30 Calcium 8.2 mg/dL (8.4-10.2) L 10/06/17 04:30 Total Bilirubin 0.6 mg/dl (0.2-1.3) 10/04/17 17:49 AST 37 U/L (14-36) H 10/04/17 17:49 ALT 36 U/L (9-52) 10/04/17 17:49 Alkaline Phosphatase 104 U/L (38-126) 10/04/17 17:49 Total Protein 7.3 G/DL (6.3-8.2) 10/04/17 17:49 Albumin 4.2 g/dL (3.5-5.0) 10/04/17 17:49 Globulin 3.1 gm/dL (2.2-3.9) 10/04/17 17:49 Albumin/Globulin Ratio 1.3 (1.0-2.1) 10/04/17 17:49 Urine Color Yellow (YELLOW) 10/04/17 21:30 Urine Clarity Slighty-cloudy (Clear) 10/04/17 21:30 Urine pH 5.0 (5.0-8.0) 10/04/17 21:30 Ur Specific [place] 1.019 (1.003-1.030) 10/04/17 21:30 Urine Protein Negative mg/dL (NEGATIVE) 10/04/17 21:30 Urine Glucose (UA) Neg mg/dL (Normal) 10/04/17 21:30 Urine Ketones Trace mg/dL (NEGATIVE) 10/04/17 21:30 Urine Blood Negative (NEGATIVE) 10/04/17 21:30 Urine Nitrate Negative (NEGATIVE) 10/04/17 21:30 Urine Bilirubin Negative (NEGATIVE) 10/04/17 21:30 Urine Urobilinogen 0.2-1.0 mg/dL (0.2-1.0) 10/04/17 21:30 Ur Leukocyte Esterase Neg [place]/uL (Negative) 10/04/17 21:30 Urine RBC (Auto) 3 /hpf (0-3) 10/04/17 21:30 Urine Microscopic WBC 1 /hpf (0-5) 10/04/17 21:30 Ur Squamous Epith Cells 2 /hpf (0-5) 10/04/17 21:30 Hyaline Casts 0-2 /hpf (0-2) 10/04/17 21:30 Blood Type O POSITIVE 10/05/17 08:25 Blood Type Confirm O POSITIVE 10/05/17 10:40 Antibody Screen Negative 10/05/17 08:25 BBK History Checked No verified bt 10/05/17 08:25 - Hospital Course Hospital Course: This is a 72 year old female with past medical history of mild intermittent asthma (has not had to use her Ventolin inhaler for years) presenting to the ED status post fall the evening of 10/03/2017, with acute right wrist fracture. Medically stable for OR this morning, low risk for moderate risk procedure. 1) Acute right distal radial fracture and acute right ulnar fracture - Place on med/surg observation - Consultation with Dr. Rios- plan for OR tomorrow morning - NPO at midnight with maintenance fluids - Pain control with Tylenol and morphine sliding scale - Patient stable to be discharged home this morning with percocet and follow up with Dr. Rios. 2) Hypertension on admission - May be elevated secondary to pain - Cardiology consult with Dr. Ott for preop cardiac risk assessment 3) DVT prophylaxis - SCDs Discharge Exam - Head Exam Additional comments: GENERAL APPEARANCE: Well developed, well nourished, alert and cooperative, and appears to be in no acute distress. HEENT: normocephalic, atraumatic PERRL, EOMI. Vision is grossly intact NECK: Neck supple, non-tender without lymphadenopathy, masses or thyromegaly. CARDIAC: Normal S1 and S2. No S3, S4 or murmurs. Rhythm is regular. LUNGS: Clear to auscultation and percussion without rales, rhonchi, wheezing or diminished breath sounds. ABDOMEN: Positive bowel sounds. Soft, nondistended, nontender. No guarding or rebound. No masses. BACK: Examination of the spine reveals no spinal deformity, symmetry of spinal muscles, EXTREMITIES: dressings in place. NEUROLOGICAL: Strength and sensation symmetric and intact throughout. Reflexes 2 + throughout. SKIN: Skin normal color, texture and turgor with no lesions or eruptions. PSYCHIATRIC: The patient was oriented to person, place, and time. Normal affect. Discharge Plan - Discharge Medications Prescriptions: Ondansetron [Zofran] 4 mg PO Q8H #30 tab oxyCODONE/Acetaminophen [Percocet 5/325 mg Tab] 1 ea PO Q6 #20 tab - Follow Up Plan Condition: STABLE Disposition: HOME/ ROUTINE Instructions: Open Reduction and Internal Fixation Surgery (DC) Additional Instructions: FOLLOW UP WITH PCP AND DR. RIOS ONE WEEK
--- NOTE | 2017-10-07 11:04 | OP ---
PROCEDURE DATE: 10/05/2017 LOCATION: . [facility]. PREOPERATIVE DIAGNOSIS: Displaced comminuted angulated distal radius fracture. POSTOPERATIVE DIAGNOSIS: Displaced comminuted angulated distal radius fracture. OPERATIVE FINDINGS: Displaced comminuted distal radius fracture. OPERATION PERFORMED: 1. Closed reduction percutaneous pin fixation displaced distal radius fracture, right wrist. 2. Application of external fixator. 3. Positioning of fluoroscope interpretation of video images. SURGEON: Jordy Rios MD AIR BAG CURER: Dr. Bruner, first year Podiatry resident. TYPE OF ANESTHESIA: General endotracheal anesthesia. ANESTHESIA ADMINISTERED BY: Maximo Harris MD SPECIMENS: No specimens removed. ESTIMATED BLOOD LOSS: Less than 5 mL. BLOOD PRODUCTS: No blood products given. DRAINS: No drains. POSTOPERATIVE CONDITION: Stable/good. TIME OF SURGERY: 9:30 incision time, 8:50 in the room, and anesthesia induction time. OPERATIVE INDICATIONS: 1. 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 The patient had sustained a fall in her driveway sustaining a contusion with ecchymosis to the right zygomatic arch/periorbital region. 2. Sustained and displaced comminuted distal radius fracture. 3. Right knee contusion. The patient presents to [facility] as an emergency. Her son is a EMS specialist in [place] and had recommended she come to [facility] where I am Chief of Orthopedics. The patient is admitted, stabilized, and taken to surgery after medical clearance and cardiac clearance. Pros, cons, risks, and benefits of surgical approach were discussed. The concept that the patient had a vague metal allergy years ago and the configuration of the fracture of the impeti to percutaneous pin fixation and application of fixator, since the metal can be removed quickly and plate will not be able to easily be removed. Pros, cons, risks, and benefits of surgical approach discussed the possibility of mechanical failure, infection, allergy, thromboembolic disease, secondary or tertiary surgery were discussed. The patient wished the surgery to be accomplished soon as possible. DESCRIPTION OF THE PROCEDURE: After having obtained informed consent in the above fashion, after having identified side, site and procedure, and a critical pause/time-out and satisfactory induction of the anesthetic, the patient identified as Dr. Lin Castellanos in the supine position with all bony prominences well padded. The right upper extremity is placed in finger trap traction at approximately 95 degrees flexion of the elbow, this was a well-padded stockinette for a counter weight across the brachium. Under the surgeon's direction, the fluoroscope was positioned, video images were generated and therapeutic decisions were made therefrom. This having been accomplished, closed reduction having been accomplished, the right upper extremity was prepped and draped in the usual fashion for percutaneous pin fixation of the distal radius fracture and application of the external fixator. Great care was taken to maintain sterilely. After sterilely prepping and draping, after having performed closed reduction, reduction was found to be acceptable. It should be noted that this was a very difficult fracture, was comminuted and angulated with a volar component. This having been accomplished, closed reduction having been accomplished, the radial styloid was identified under image intensification control using a blade, an incision was accomplished several millimeters in extent in the area of the distal radial styloid. Verification of position was offered on AP and lateral image intensification views 1.6 mm K-wires were used and two K-wires were put in different attitudes at the area of the radial styloid through the fracture and engaging the radial shaft. Verification of position was offered on AP and lateral image intensification views. A third K-wire was introduced as well. The position was found to be acceptable. At this point in time, the 1.6-mm wire was placed to the volar aspect of the radius. This having been accomplished, the K-wire having been introduced, the position was found to be essentially anatomic. At this point in time, the wound was thoroughly irrigated. Closure was with interrupted nylon suture after the K-wires had been clipped under the skin. At this point in time, the second metacarpal was approached dorsoradially at approximately just distal to the mid shaft and two small incisions were accomplished. The pins for the external fixator was thus introduced. At this point in time, the pins having been introduced and in the area of the second metacarpal dorsoradially, verification of position was offered on AP and lateral image intensification views. At this point in time, the brachioradialis was identified and just proximal to the brachioradialis, the bare area was identified and 2 proximal pins were introduced to support the external fixator as well. This having been accomplished, verification of position having been accomplished, the fracture site viewed and having been found to be acceptable and the position of the pins having been acceptable. The clamps to hold the carbon salena were introduced to the two pins both proximally and distally at this point in time, they were adjusted and tightened. The carbon salena was introduced and in this manner, the external fixation was accomplished. All screws were tightened and the wound was thoroughly irrigated. The incisions were closed with interrupted nylon. Compression dressing was accomplished using a Kerlix and the compression dressing applied, the right upper extremity was elevated. The patient was transferred from the operating table to the stretcher having tolerated the procedure well. Again verification of position on AP and lateral image intensification views revealed acceptable position of the percutaneous pin fixation and the external fixator. The patient was stable in the ICU postoperatively. Jordy Rios MD
--- NOTE | 2017-10-07 13:06 | RAD ---
PROCEDURE: Intraoperative Fluoroscopy. HISTORY: FX FINDINGS: Fluoroscopic assistance was provided for open reduction internal fixation distal radial fracture. Please refer to the operative report from DAVIDA Lim. Total fluoroscopic time (continuous mode) utilized during the procedure 77.6 (seconds).
== END 2017-10-06 12:03 | disposition home or self-care (01) ==
LOC: H.ER 13:21 → INTOOBSV 16:41 → H.ERHOLD 16:41 → H.TEL 21:49
PROVIDERS: ADMIT Internal Medicine; ATTEND Internal Medicine
DX: S52.501A Unspecified fracture of the lower end of right radius, initial encounter for closed fracture (principal); J45.20 Mild intermittent asthma, uncomplicated; I10 Essential (primary) hypertension; S80.01XA Contusion of right knee, initial encounter; W01.0XXA Fall on same level from slipping, tripping and stumbling without subsequent striking against object, initial encounter; S52.601A Unspecified fracture of lower end of right ulna, initial encounter for closed fracture; Z88.1 Allergy status to other antibiotic agents; Z91.040 Latex allergy status
CPT/HCPCS: 20690; 25606; 36415; 70450; 70480; 71045; 73110; 73130; 73200; 73562; 80048; 80053; 81003; 85025; 85027; 85610; 85730; 86850; 86900; 93005; 99285; G0378; J0330; J0690; J1170; J2001; J2270; J2370; J2405; J2704; J2710; J3010; J7120

== ENCOUNTER 2017-11-24 06:20 | Day surgery (SDC) | payer MEDICARE, BC ==
[2017-11-20 14:27] VITALS: BMI 24.0
[2017-11-24] MEDS ORDERED: Phenylephrine 10 mg/ml Inj ONE (07:08)
[2017-11-24] MEDS ORDERED: Propofol 10 mg/ml Inj (20 ML) ONE (07:08)
[2017-11-24] MEDS ORDERED: Etomidate 20 mg/10ml Inj IV ONE (07:08)
--- NOTE | 2017-11-24 07:10 | CP.SDSHP ---
Same Day Surgery H & P - History Proposed Procedure: Right wrist removal of exfix/pins Pre-Op Diagnosis: Right distal radius fracture s/p exfix/ppinning - Previous Medical/Surgical History Pulmonary: Asthma Previous Surgical History: right wrist exfix/ppinning 10/04/2017 - Allergies Allergies: Allergies ciprofloxacin [From Cipro] Allergy (Verified 10/04/17 13:29) RASH contact metal agent Allergy (Verified 10/05/17 07:05) PAIN Latex, Natural Rubber Allergy (Verified 10/05/17 00:34) RASH - Physical Exam Mental Status: Alert & Oriented x3 Heart: WNL Lungs: WNL GI: WNL - {Optional Preform as Required} Ortho: Other (right wrist: dressing intact, no erythema, dry, +ROM fingers, sensation intact) Other Pertinent Findings: [place] [employer] patient report reviewed, last rx 10/2017 T#3 at follow up visit. Patient counseled on the risks of addiction, physical or psychological dependence, and overdose associated with opioid drugs and the danger of taking opioid drugs with alcohol and other central nervous system depressants, and cautioned patient on storage and disposal. - Impression Impression: 72F s/p right distal radius fx for removal of exfix/pins Pt. Evaluated Today:Candidate for Anesthesia & Procedure: Yes - Date & Time Date: 11/24/17 Time: 07:10 Short Stay Discharge - Short Stay Discharge Admitting Diagnosis/Reason for Visit: S52.501A Disposition: HOME/ ROUTINE Referrals: Jodry Rios III, MD [Primary Care Provider] -
[2017-11-24] MEDS ORDERED: Lactated Ringer's 1,000 ML IV ONE (07:20)
[2017-11-24] MEDS ORDERED: MethylPREDNISolone Depo 40 mg/ml Inj ONE (07:25)
[2017-11-24] MEDS ORDERED: Bupivacaine HCl 0.25% PF (30 ml) Inj ONE (07:25)
[2017-11-24] MEDS ORDERED: Bacitracin Ointment 30 GM TUBE ONE (07:26)
[2017-11-24] MEDS ORDERED: ceFAZolin IV 2 gm in Dextrose 2 GM/50 ML BAG IVPB ONE (07:26)
[2017-11-24] MEDS ORDERED: Midazolam 2 MG/2 ML VIAL ONE (07:43)
[2017-11-24] MEDS ORDERED: Sevoflurane - Inhalation Anesthetic Liq (250 ml) ONE (07:57)
[2017-11-24] MEDS ORDERED: Oxycodone/Acetaminophen 5/325 mg Tab PO PRN (08:26)
[2017-11-24] MEDS ORDERED: Bupivacaine 0.25% Inj(30mL) IJ ONE ×2 (08:49)
[2017-11-24] MEDS: HYDROmorphone 0.5 mg/0.5 ml ISec IVP PRN ×3 (09:05→09:40)
[2017-11-24] MEDS ORDERED: Lactated Ringer's 1,000 ML IV SCH (09:15)
[2017-11-24 10:04] VITALS: RESP 18
[2017-11-24 11:18] VITALS: O2SAT 97
--- NOTE | 2017-11-24 11:48 | PCM.SURG1 ---
Surgeon's Initial Post Op Note - Surgeon's Notes Surgeon: Blanca Deflash And Wash Operator: NAVEEN Costa Type of Anesthesia: General Endo Anesthesia Administered By: DR Robertson Pre-Operative Diagnosis: s/p perc pin fixatiuon displaced distal radius fracture /applx external fixator Operative Findings: healed siatl radius fx. painful hardware (deep) Post-Operative Diagnosis: as above Operation Performed: Removal hardware (deep). removal external fixator. manipulation distal radius under fluoro/anaesthesia. positioninf of fluor/ interpretation of video Specimen/Specimens Removed: pin/external fixator/skin subcutaneous tissue/muscle Estimated Blood Loss: EBL {In ML}: 3 Blood Products Given: N/A Drains Used: No Drains Post-Op Condition: Fair Date of Surgery/Procedure: 11/24/17 Time of Surgery/Procedure: 08:15 (Time in room/aneathseisa indcution time 7:42)
[2017-11-24 12:11] VITALS: BP 155/74; PULSE 77; TEMP 97.9
--- NOTE | 2017-11-24 13:05 | RAD ---
Date of service: 11/24/2017 PROCEDURE: Right Wrist Radiographs. HISTORY: s/p hardware removal COMPARISON: 10/05/2017. FINDINGS: BONES: Status post removal of fixation hardware right hand and wrist as well as forearm. JOINTS: Normal. No dislocation. SOFT TISSUES: Normal. OTHER FINDINGS: None. IMPRESSION: Satisfactory postoperative status.
--- NOTE | 2017-11-24 16:37 | RAD ---
Date of service: 11/24/2017 PROCEDURE: Fluoroscopy up to 1 hr. HISTORY: HARDWARE REMOVAL COMPARISON: None TECHNIQUE: Standard protocol for this study/examination. FINDINGS: Total fluoroscopic time (continuous mode) utilized during the procedure (seconds) 30.2. Total exam DLP: 0.44 (mGy) IMPRESSION: Submitted images from the current procedure: 7.0
--- NOTE | 2017-11-25 10:24 | OP ---
PROCEDURE DATE: 11/24/2017 PREOPERATIVE DIAGNOSES: 1. Status post percutaneous pin fixation of displaced distal radius fracture with application external fixator. 2. Painful hardware. 3. Healed distal radius fracture. POSTOPERATIVE DIAGNOSES: 1. Status post percutaneous pin fixation of displaced distal radius fracture with application external fixator. 2. Painful hardware. 3. Healed distal radius fracture. OPERATIVE FINDINGS: 1. Healed distal radius fracture. 2. Painful hardware, deep. 3. External fixator. OPERATION PERFORMED: 1. Removal hardware, deep. 2. Removal external fixator. 3. Manipulation of wrist under fluoroscopy and anesthesia. 4. Positioning of fluoroscope interpretation of video images. 5. Excision of skin and subcutaneous tissue. SPECIMEN: K-wires/external fixator/skin and subcutaneous tissue and some muscle. SURGEON: Jordy Rios MD PROBATION OFFICER: Doreen Willis, certified registered nursing licensed occupational therapy assistant. ANESTHESIA: General endotracheal anesthesia. Anesthesia administered by Dr. Moore. BLOOD LOSS: 3 mL. BLOOD PRODUCTS GIVEN: None. DRAINS: None. POSTOPERATIVE CONDITION: Stable. TIME OF PROCEDURE: Time in the room 07:42 a.m. INCISION TIME: 08:15 a.m. OPERATIVE INDICATION: Lin Castellanos is a 72-year-old woman who on had sustained a fall on an outstretched distal radius/wrist with marked pain and restricted range of motion of the wrist. The patient presented to the emergency room at [facility] with a displaced comminuted fracture of the wrist. The patient was admitted and medical stabilization was accomplished. The patient was taken to surgery the next day where closed reduction and percutaneous pin fixation was accomplished under fluoroscopy with application of an external fixator. At this point, the fracture has healed per primum and the patient presents as a continuation of tear of the initial aforementioned procedure with removal of pins, fixator, manipulation of the wrist under anesthesia and fluoroscopy. OPERATIVE PROCEDURE: After having obtained informed consent in the above fashion, after thoroughly discussing the possibility of a mechanical failure, retention of hardware, nerve injury, secondary or tertiary surgery was discussed. The patient also has evidence of pre-injury of a prominent caput ulna, probably from a prior distal radial ulnar dislocation. The possibility of later Darrach procedure was discussed with the patient and her son, Laci; possibility of mechanical failure, infection, stiffness, thromboembolic disease, infection, secondary or tertiary surgery was discussed. The patient could no longer stand the discomfort and wished the surgery to be accomplished. The right upper extremity was prepped and free draped in usual fashion for upper extremity surgery. The right wrist is the correct wrist. After having obtained informed consent, after the satisfactory induction of the anesthetic by Dr. Moore, the right upper extremity was prepped and free draped in usual fashion for upper extremity surgery. Under the surgeon's direction, the fluoroscope was positioned, video images were generated and therapeutic decisions were made therefrom. The tourniquet was applied, but was not inflated at this point. The external fixator was removed. Pins were removed that support the external fixator using the power drill from the sharp attachment. At this point in time, the initial incision in the area of the distal radius on the radial aspect is extended using #15 blade. The skin edges were excised; skin subcutaneous tissue and a bit of muscle. Great care was taken to avoid injury to the neurocirculatory structures. At this point in time, the two superficial pins were removed. Under the surgeon's direction, after sterilely prepping and draping, the fluoroscope having been positioned, video images were generated and therapeutic decisions were made therefrom. Distal radius fracture was found to be healed in an acceptable position on AP and lateral image intensification views. This having been accomplished after removing the initial two pins, dissection was carried out under direct eyeglass magnification of 2.0 times. The deep pins were identified under fluoroscopic control. The incision having been extended, the third pin was removed and the fourth pin was found to be very deep. Verification of position was offered on AP and lateral image intensification views. Great care was taken not to injure the tendinous or neurocirculatory structures. The final pin was removed. The tourniquet had been inflated prior to removal of the fourth pin. This having been accomplished, all pins having been removed, the tourniquet was deflated. Hemostasis controlled. Closures in layers with interrupted Vicryl and nylon. Gaston Mccarty compression dressing was applied. Again, verification of position was offered on AP and lateral image intensification views. Jordy Rios MD [facility] # [id number]
== END 2017-11-24 13:07 | disposition home or self-care (01) ==
LOC: H.OPSURG 06:20
PROVIDERS: ATTEND Orthopaedic Surgery
DX: T84.84XA Pain due to internal orthopedic prosthetic devices, implants and grafts, initial encounter (principal); I20.8 Other forms of angina pectoris; S52.501D Unspecified fracture of the lower end of right radius, subsequent encounter for closed fracture with routine healing; Y83.1 Surgical operation with implant of artificial internal device as the cause of abnormal reaction of the patient, or of later complication, without mention of misadventure at the time of the procedure; J45.909 Unspecified asthma, uncomplicated
CPT/HCPCS: 20680; 25259; 36415; 73110; 84132; 88304; 88305; J0690; J1170; J1885; J2001; J2250; J2370; J2405; J2704; J3010; J7030; J7120